=== PATIENT | male | born 1985 | race Caucasian/White ===

== ENCOUNTER 2022-05-30 17:55 | Emergency (ER) | payer OTHER ==
[~2022-05-30] VITALS: Ht 185.5 cm; Wt 111.0 kg
--- NOTE | 2022-05-30 18:07 | ED Cardiac General ---
History of Present Illness General Stated Complaint: HIGH BLOOD PRESSURE Source: patient History of Present Illness Date Seen by Provider: May 30, 2022 Time Seen by Provider: 18:02 Initial Comments PT ARRIVES VIA POV WITH C/O HEADACHE X 3 HOURS--PAIN IS MOSTLY IN THE BACK . WENT TO [facility] [place] (BECAUSE OF ERECTILE DYSFUNCTION) AND BP WAS ELEVATED 186/107 AND THEN 200/120--WAS SENT HERE FOR FURTHER EVALUATION NO HISTORY OF HTN, BUT HAS NOT BEEN TO A DR. IN YEARS NO CHEST PAIN NO SHORTNESS OF BREATH NO PALPITATIONS NO DIZZINESS NO VISION CHANGES NO NAUSEA/VOMITING NO SWEATS NO PARESTHESIAS OR MOTOR DEFICITS NO HISTORY OF SIMILAR PT IS NOT COVID OR FLU VACCINATED DENIES ANY RECENT ILLNESS. DID HAVE A KNOWN SICK CONTACT ABOUT 3 WEEKS AGO. PT SMOKES 1 1/2 PPD, DENIES ALCOHOL OR DRUG USE PT DRINKS "ALOT" OF POP--OVER 2 LITERS OF POP A DAY, DENIES OTHER CAFFEINE I NTAKE PCP: NONE Allergies and Home Medications Allergies Coded Allergies: No Known Drug Allergies (Unverified , 05/30/22) Patient Home Medication List Home Medication List Reviewed: Yes Hydralazine HCl (Hydralazine HCl) 10 Mg Tablet, 10 MG PO TID PRN for BLOOD PRESSURE Prescribed by: HONEY BOO on 05/30/22 0777 Review of Systems Review of Systems Constitutional: no symptoms reported EENTM: No Symptoms Reported Respiratory: No Symptoms Reported Cardiovascular: See HPI; Denies Chest Pain, Denies Edema, Denies Irregular He art Rate, Denies Lightheadedness, Denies Palpitations, Denies Syncope Gastrointestinal: No Symptoms Reported Genitourinary: See HPI Musculoskeletal: no symptoms reported Skin: no symptoms reported Psychiatric/Neurological: See HPI, Headache; Denies Numbness, Denies Paresthe jesus, Denies Tingling, Denies Weakness Endocrine: No Symptoms Reported Hematologic/Lymphatic: No Symptoms Reported Past Zhxrsdp-Zgujpr-Uhfldu Hx Patient Social History Tobacco Use?: Yes Tobacco type used: Cigarettes Smoking Status: Current Everyday Smoker Smokeless Tobacco Frequency: Never a User Use of E-Cig and/or Vaping Joseph: Never a User Substance use?: No Alcohol Use?: No Past Medical History Surgeries: No Respiratory: No Cardiac: Yes (ELEVATED BP 05/30/22) Hypertension Neurological: No Reproductive Disorders: Yes (E.D.) Genitourinary: No Gastrointestinal: No Musculoskeletal: Yes (SCIATICA) Chronic Back Pain HEENT: No Cancer: No Psychosocial: No Integumentary: No Blood Disorders: No Physical Exam Vital Signs Vital Signs - First Documented 05/30/22 18:00 Temp 36.6 Pulse 83 Resp 18 B/P (MAP) 179/114 (135) Pulse Ox 98 O2 Delivery Room Air Capillary Refill : Height, Weight, BMI Height: '" Weight: lbs. oz. 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, 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 II-XII Norm as Tested Skin: Normal Color, Warm/Dry Progress/Results/Core Measures Results/Orders Lab Results Laboratory Tests Test 05/30/22 18:05 05/30/22 18:36 Range/Units White Blood Count 9.4 4.3-11.0 10^3/uL Red Blood Count 5.22 4.30-5.52 10^6/uL Hemoglobin 16.0 13.3-17.7 g/dL Hematocrit 47 40-54 % Mean Corpuscular Volume 90 80-99 fL Mean Corpuscular Hemoglobin 31 25-34 pg Mean Corpuscular Hemoglobin Concent 34 32-36 g/dL Red Cell Distribution Width 13.3 10.0-14.5 % Platelet Count 136 130-400 10^3/uL Mean Platelet Volume 12.1 9.0-12.2 fL Immature Granulocyte % (Auto) 0 % Neutrophils (%) (Auto) 60 42-75 % Lymphocytes (%) (Auto) 34 12-44 % Monocytes (%) (Auto) 5 0-12 % Eosinophils (%) (Auto) 1 0-10 % Basophils (%) (Auto) 0 0-10 % Neutrophils # (Auto) 5.6 1.8-7.8 10^3/uL Lymphocytes # (Auto) 3.2 1.0-4.0 10^3/uL Monocytes # (Auto) 0.5 0.0-1.0 10^3/uL Eosinophils # (Auto) 0.1 0.0-0.3 10^3/uL Basophils # (Auto) 0.0 0.0-0.1 10^3/uL Immature Granulocyte # (Auto) 0.0 0.0-0.1 10^3/uL Prothrombin Time 12.4 12.2-14.7 SEC INR Comment 0.9 0.8-1.4 Activated Partial Thromboplast Time 29 24-35 SEC Sodium Level 140 135-145 MMOL/L Potassium Level 3.7 3.6-5.0 MMOL/L Chloride Level 105 98-107 MMOL/L Carbon Dioxide Level 24 21-32 MMOL/L Anion Gap 11 5-14 MMOL/L Blood Urea Nitrogen 8 7-18 MG/DL Creatinine 0.92 0.60-1.30 MG/DL Estimat Glomerular Filtration Rate 109 BUN/Creatinine Ratio 9 Glucose Level 120 H 70-105 MG/DL Calcium Level 9.7 8.5-10.1 MG/DL Corrected Calcium 8.5-10.1 MG/DL Magnesium Level 2.3 1.6-2.4 MG/DL Total Bilirubin 1.0 0.1-1.0 MG/DL Aspartate Amino Transf (AST/SGOT) 28 5-34 U/L Alanine Aminotransferase (ALT/SGPT) 47 0-55 U/L Alkaline Phosphatase 96 40-136 U/L Total Creatine Kinase 272 H 30-200 U/L Creatine Kinase MB 2.3 <6.6 NG/ML Troponin I < 0.028 <0.028 NG/ML B-Type Natriuretic Peptide < 10.0 <100.0 PG/ML Total Protein 7.7 6.4-8.2 GM/DL Albumin 4.7 H 3.2-4.5 GM/DL TSH [place] Testing 1.63 0.35-4.94 UIU/ML Serum Alcohol < 10 <10 MG/DL Urine Color YELLOW Urine Clarity SL CLOUDY Urine pH 6.5 5-9 Urine Specific Excel 1.010 L 1.016-1.022 Urine Protein NEGATIVE NEGATIVE Urine Glucose (UA) NEGATIVE NEGATIVE Urine Ketones NEGATIVE NEGATIVE Urine Nitrite NEGATIVE NEGATIVE Urine Bilirubin NEGATIVE NEGATIVE Urine Urobilinogen 0.2 < = 1.0 MG/DL Urine Leukocyte Esterase NEGATIVE NEGATIVE Urine RBC (Auto) NEGATIVE NEGATIVE Urine RBC NONE /HPF Urine WBC NONE /HPF Urine Squamous Epithelial Cells NONE /HPF Urine Crystals NONE /LPF Urine Bacteria NEGATIVE /HPF Urine Casts NONE /LPF Urine Mucus NEGATIVE /LPF Urine Culture Indicated NO Urine Opiates Screen NEGATIVE NEGATIVE Urine Oxycodone Screen NEGATIVE NEGATIVE Urine Methadone Screen NEGATIVE NEGATIVE Urine Propoxyphene Screen NEGATIVE NEGATIVE Urine Barbiturates Screen NEGATIVE NEGATIVE Ur Tricyclic Antidepressants Screen NEGATIVE NEGATIVE Urine Phencyclidine Screen NEGATIVE NEGATIVE Urine Amphetamines Screen NEGATIVE NEGATIVE Urine Methamphetamines Screen NEGATIVE NEGATIVE Urine Benzodiazepines Screen NEGATIVE NEGATIVE Urine Cocaine Screen NEGATIVE NEGATIVE Urine Cannabinoids Screen NEGATIVE NEGATIVE My Orders Orders - HONEY BOO DO Ed Iv/Invasive Line Start (05/30/22 18:03) Ekg Tracing (05/30/22 18:03) Monitor-Rhythm Ecg Trace Only (05/30/22 18:03) Alcohol (05/30/22 18:03) Bnp [place] (05/30/22 18:03) Cbc With Automated Diff (05/30/22 18:03) Comprehensive Metabolic Panel (05/30/22 18:03) Creatine Kinase (05/30/22 18:03) Creatine Kinase Mb (05/30/22 18:03) Drug Screen Stat (Urine) (05/30/22 18:03) Magnesium (05/30/22 18:03) Protime With Inr (05/30/22 18:03) Partial Thromboplastin Time (05/30/22 18:03) Thyroid Analyzer (05/30/22 18:03) Ua Culture If Indicated (05/30/22 18:03) Troponin I Jazmyn (05/30/22 18:03) Chest 1 View, Ap/Pa Only (05/30/22 18:03) Hydralazine Injection (Apresoline Inject (05/30/22 18:30) Hydralazine Injection (Apresoline Inject (05/30/22 19:00) Medications Given in ED Current Medications Medications Dose Ordered Sig/Lyle Route Start Time Stop Time Status Last Admin Dose Admin Hydralazine HCl 10 mg ONCE ONCE IV 05/30/22 18:30 05/30/22 18:31 DC 05/30/22 18:30 10 MG Vital Signs/I&O 05/30/22 18:00 Temp 36.6 Pulse 83 Resp 18 B/P (MAP) 179/114 (135) Pulse Ox 98 O2 Delivery Room Air Progress Progress Note : Progress Note PT HAS NO PRIOR VISITS HERE GIVEN: -HYDRALAZINE UNABLE TO VIEW XRAYS, DUE TO SYSTEM FAILURE. INITIAL BP 179/114 BP DOWN TO 140'S/100 PT IS ASYMPTOMATIC FOR ENTIRE ER STAY. NO HEADACHE OR ANY OTHER SYMPTOMS REVIEWED TEST RESULTS, ANTICIPATED COURSE, MEDICATIONS, NEED FOR FOLLOW UP AND RETURN PRECAUTIONS PT STATES HE WAS GIVEN A BLOOD PRESSURE CUFF TODAY BY [facility] Initial ECG Impression Date: May 30, 2022 Initial ECG Impression Time: 18:11 Initial ECG Rate: 82 Initial ECG Rhythm: Normal Sinus Initial ECG Comparisson: No Previous ECG Available Diagnostic Imaging Comments CXR--VIEWED ON PORTABLE XRAY SCREEN--GROSSLY NORMAL. PENDING RADIOLOGIST REVIEW Reviewed: Reviewed by Me Departure Impression Primary Impression: HYPERTENSION NEW DIAGNOSIS Disposition: 01 HOME, SELF-CARE Condition: Improved Departure-Patient Inst. Decision time for Depature: 19:20 Referrals: NO,LOCAL PHYSICIAN (PCP) Primary Care Physician [facility] Patient Instructions: DASH Diet, Heart Healthy Diet, High Blood Pressure (DC) Add. Discharge Instructions: HOME, REST DECREASE YOUR CAFFEINE INTAKE LOW SODIUM DIET--LESS THAN 2 GRAMS A DAY OF SODIUM FOLLOW UP WITH [facility] THIS WEEK FOR FURTHER CARE RETURN TO ER IF SYMPTOMS WORSEN Scripts Hydralazine HCl (Hydralazine HCl) 10 Mg Tablet 10 MG PO TID PRN for BLOOD PRESSURE, #15 TAB TAKE NEEDED THREE TIMES A DAY FOR SYSTOLIC BP > 160 OR DIASTOLIC BP > 100 Prov: HONEY BOO DO 05/30/22 Work/School Note: Work Release Form Date Seen in the Emergency Department: May 30, 2022 Return to Work: Jun 01, 2022 HONEY BOO DO May 30, 2022 18:07
[2022-05-30 18:17] LABS: BASOPHILS % (AUTO) 0 % (0-10); EOSINOPHILS # (AUTO) 0.1 10^3/uL (0.0-0.3); EOSINOPHILS % (AUTO) 1 % (0-10); HEMATOCRIT 47 % (40-54); LYMPHOCYTES # (AUTO) 3.2 10^3/uL (1.0-4.0); LYMPHOCYTES % (AUTO) 34 % (12-44); MEAN CORPUSCULAR HEMOGLOBIN 31 pg (25-34); MEAN CORPUSCULAR HGB CONC 34 g/dL (32-36); MEAN CORPUSCULAR VOLUME 90 fL (80-99); MEAN PLATELET VOLUME 12.1 fL (9.0-12.2); MONOCYTES # (AUTO) 0.5 10^3/uL (0.0-1.0); MONOCYTES % (AUTO) 5 % (0-12); NEUTROPHILS # (AUTO) 5.6 10^3/uL (1.8-7.8); NEUTROPHILS % (AUTO) 60 % (42-75); PLATELET COUNT 136 10^3/uL (130-400); WHITE BLOOD COUNT 9.4 10^3/uL (4.3-11.0)
[2022-05-30 18:25] LABS: ALBUMIN 4.7 GM/DL (3.2-4.5); CHLORIDE 105 MMOL/L (98-107); POTASSIUM 3.7 MMOL/L (3.6-5.0); SODIUM 140 MMOL/L (135-145)
[2022-05-30 18:26] LABS: CALCIUM 9.7 MG/DL (8.5-10.1)
[2022-05-30 18:28] LABS: GLUCOSE 120 MG/DL (70-105); TOTAL PROTEIN 7.7 GM/DL (6.4-8.2)
[2022-05-30 18:29] LABS: CARBON DIOXIDE 24 MMOL/L (21-32)
[2022-05-30] MEDS ORDERED: hydrALAZINE (APESOLINE) 20 MG/ML VIAL IV ONE ×2 (18:30→19:00)
[2022-05-30 18:31] LABS: ALKALINE PHOSPHATASE 96 U/L (40-136); CREATININE SERUM 0.92 MG/DL (0.60-1.30); GFR ESTIMATED 109
[2022-05-30 18:32] LABS: BUN/CREATININE RATIO 9
[2022-05-30 18:34] LABS: ALANINE AMINOTRANSFERASE 47 U/L (0-55); MAGNESIUM 2.3 MG/DL (1.6-2.4)
[2022-05-30 18:35] LABS: CREATINE KINASE 272 U/L (30-200)
[2022-05-30 18:36] LABS: INR 0.9 (0.8-1.4); PROTHROMBIN TIME PATIENT 12.4 SEC (12.2-14.7)
[2022-05-30 18:39] LABS: BILIRUBIN,URINE NEGATIVE (NEGATIVE); CLARITY,URINE SL CLOUDY; COLOR,URINE YELLOW; GLUCOSE, URINE (UA) NEGATIVE (NEGATIVE); KETONES,URINE NEGATIVE (NEGATIVE); LEUKOCYTE ESTERASE ,URINE NEGATIVE (NEGATIVE); NITRITE,URINE NEGATIVE (NEGATIVE); PH,URINE 6.5 (5-9); PROTEIN,URINE NEGATIVE (NEGATIVE)
[2022-05-30 18:41] LABS: CREATINE KINASE MB 2.3 NG/ML (<6.6)
[2022-05-30 18:48] LABS: BACTERIA,URINE NEGATIVE /HPF
[2022-05-30 18:50] LABS: AMPHETAMINE SCREEN, URINE NEGATIVE (NEGATIVE); BARBITURATE SCREEN URINE NEGATIVE (NEGATIVE); BENZODIAZEPINES SCREEN URINE NEGATIVE (NEGATIVE); CANNABINOID SCREEN, URINE NEGATIVE (NEGATIVE); COCAINE SCREEN URINE NEGATIVE (NEGATIVE); METHADONE STAT NEGATIVE (NEGATIVE); OPIATE SCREEN URINE NEGATIVE (NEGATIVE); TRICYCLIC ANTIDEPRESSANTS SCRE NEGATIVE (NEGATIVE)
[2022-05-30 18:51] LABS: OXYCODONE STAT NEGATIVE (NEGATIVE); PROPOXYPHENE STAT NEGATIVE (NEGATIVE)
[2022-05-30 18:55] LABS: TSH (THYROID ANALYZER) 1.63 UIU/ML (0.35-4.94)
[2022-05-30] MEDS ORDERED: HYDR-3922 PO (18:57)
[2022-05-30 19:29] VITALS: BP 149/100
--- NOTE | 2022-05-30 20:40 | Diagnostic Imaging Report ---
INDICATION: Hypertension. EXAMINATION: Frontal chest was obtained at 6:16 p.m. Heart is borderline in size. Mediastinal silhouette is unremarkable. The lungs are clear. There is no pneumothorax or pleural fluid. IMPRESSION: Negative chest. Dictated by: Dictated on workstation # [id number]
== END 2022-05-30 19:29 | disposition home or self-care (01) ==
LOC: EDUNIT# 17:55 → ER 17:58
DX: I10 Essential (primary) hypertension (principal); F17.210 Nicotine dependence, cigarettes, uncomplicated; Z28.310 Unvaccinated for COVID-19
CPT/HCPCS: 71045; 80053; 80306; 81000; 82550; 82553; 83735; 83880; 84443; 84484; 85025; 85610; 85730; G0480; 36415; 80320; 93005